=== PATIENT | male | born 1995 | race Caucasian/White ===

== ENCOUNTER 2017-11-16 19:21 | Emergency (ER) | payer OTHER ==
[~2017-11-16] VITALS: Ht 167.6 cm; Wt 76.7 kg
[2017-11-16 19:42] VITALS: BP 122/78
--- NOTE | 2017-11-16 20:45 | ULTRASOUND REPORT ---
EXAMINATION: US SCROTUM CLINICAL INFORMATION: Testicular swelling. Lump. Pain. COMPARISON: None TECHNIQUE: A sonogram of the scrotum was performed assessing ha-scale appearance and color Doppler flow. Spectral analysis and Doppler interrogation was performed. FINDINGS: RIGHT: Right testicle measures 4.9 x 2.3 x 3 cm, volume 24 mL. Parenchymal echotexture is normal. No focal testicular parenchymal lesions are visualized. Normal symmetric intratesticular flow is visualized. Right epididymal head is normal in size. There is a 3 mm cyst in the head of the right epididymis. No right hydrocele or varicocele is seen. LEFT: Left testicle measures 5 x 2.4 x 2.7 cm, volume 23 mL. Parenchymal echotexture is normal. No focal testicular parenchymal lesions are visualized. Normal symmetric intratesticular flow is visualized. Left epididymal head is normal in size. No left hydrocele or varicocele is seen. There is a palpable lump felt in the area of the groin. Targeted ultrasound of this area shows a lymph node with a normal ultrasound morphology. Lymph node measures 0.6 cm in short axis diameter. There is no hernia or abnormal mass or focal fluid collection. IMPRESSION: 1. Normal ultrasound of the right and left testicle, normal ultrasound of scrotum. 2. Small morphologically normal-appearing lymph node in the left groin in the area the palpable lump.
--- NOTE | 2017-11-16 21:01 | ED GI/GU/ABDOMINAL COMPLAINT ---
History of Present Illness General Chief Complaint: General Adult Stated Complaint: "I THINK I HAVE A HERNIA" Source: patient, old records Exam Limitations: no limitations Vital Signs & Intake/Output Vital Signs & Intake/Output Vital Signs Date Time Temp Pulse Resp B/P B/P Pulse O2 O2 Flow FiO2 Mean Ox Delivery Rate 11/16 1941 99.9 88 16 122/78 99 Room Air Allergies Coded Allergies: NO KNOWN ALLERGIES (09/14/14) Reconcile Medications Amoxicillin/Potassium Clav (Augmentin 875-125 Tablet) 875 MG-125 MG TABLET 1 TAB PO BID abscess Ibuprofen 600 MG TABLET 1 TAB PO Q6P PRN pain with food Triage Note: PT TO THE ER STATING THAT HE HAS PAIN IN HIS GROIN /10 AND THAT HE HAS A LUMP. PT STATES THAT THE LUMP FEELS LIKE A KNOT IN YOUR BACK AND IS PAINFUL TO THE TOUCH. PT STATES THAT HE THINKS THAT HE HAS HERNIA AND THAT HE HAS NO HISTORY OF IT. Triage Nurses Notes Reviewed? yes Onset: Last week Duration: day(s):, constant, continues in ED Timing: recent history Quality/Severity: moderate, sharpness, severe Location: Right inguinal Radiation: no radiation Activities at Onset: physical activity Prior Abdominal Problems: none Past Sexual History: Unobtainable at this time Modifying Factors: Worsens With: movement, palpation. Associated Symptoms: abdominal pain HPI: Several days prior to admission patient complains of increasing pain to the right inguinal area with painful lump described as sharp worse with palpation and movement. He denies fever chills nausea vomiting diarrhea chest pain cough shortness of breath headache dysuria rash bleeding. Past History Travel History Traveled to [place] past 21 day No Medical History Any Pertinent Medical History? none Tetanus Vaccine: Surgical History Surgical History: DENIES Psychosocial History What is your primary language Pashto Tobacco Use: Current Daily Use Daily Tobacco Use Amount/Type: => 5 Cigarettes daily Family History Hx Contributory? No Review of Systems Review of Systems Constitutional: Reports: no symptoms. EENTM: Reports: no symptoms. Respiratory: Reports: no symptoms. Cardiovascular: Reports: no symptoms. GI: Reports: see HPI. Genitourinary: Reports: see HPI, pain. Musculoskeletal: Reports: no symptoms. Skin: Reports: no symptoms. Neurological/Psychological: Reports: no symptoms. Hematologic/Endocrine: Reports: no symptoms. Immunologic/Allergic: Reports: no symptoms. All Other Systems: Reviewed and Negative Physical Exam Physical Exam General Appearance: well developed/nourished, alert, awake, anxious, mild distress Head: atraumatic, normal appearance Eyes: Bilateral: normal appearance, PERRL, EOMI, normal inspection. Ears, Nose, Throat, Mouth: hearing grossly normal, moist mucous membrane Neck: normal inspection, supple, full range of motion, normal alignment Respiratory: normal breath sounds, chest non-tender, no respiratory distress, quiet respiration, lungs clear Cardiovascular: regular rate/rhythm, normal peripheral pulses, norml femoral pulses equa Peripheral Pulses: 4+ carotid (R), 4+ carotid (L) Gastrointestinal: normal bowel sounds, soft, no organomegaly, mass, right inguinal lymph node tender 1 cm2 Male Genitals: normal genitalia Back: normal inspection, normal range of motion, no vertebral tenderness Extremities: normal range of motion, no ligament instability Neurologic/Psych: no motor/sensory deficits, awake, alert, oriented x 3, normal gait, 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 No Sepsis Present: No Sepsis Focused Exam Completed? No Progress Differential Diagnosis: hernia, testicular torsion Plan of Care: Current Medications Sig/Good Start time Last Medication Dose Stop Time Status Admin Amoxicillin/ 500 MG ONCE ONE 11/16 2114 UNVr Clavulanate Potassium 11/17 2115 (Augmentin) Diagnostic Imaging: Viewed by Me: Ultrasound. Discussed w/RAD: Ultrasound. Radiology Impression: 1. Normal ultrasound of the right and left testicle, normal ultrasound of scrotum. 2. Small morphologically normal-appearing lymph node in the left groin in the area the palpable lump. Initial ED EKG: none Departure Departure Time of Disposition: 2101 Disposition: HOME OR SELF CARE Condition: Stable Clinical Impression Primary Impression: Lymphadenopathy, inguinal Referrals: Monique SHAIKH,Rao Platt (PCP/Family) Valerio SHAIKH,Bernard Hong Call for surgical follow up Departure Forms: Customer Survey General Discharge Information RELEASE- WORK Prescriptions: Current Visit Scripts Amoxicillin/Potassium Clav (Augmentin 875-125 Tablet) 1 TAB PO BID #20 TAB Ibuprofen 1 TAB PO Q6P PRN pain #50 TAB with food
[2017-11-16] MEDS ORDERED: AUGMENTIN 875-1 EACH PO (21:05)
[2017-11-16] MEDS ORDERED: IBUPROFEN600 M1 PO (21:05)
== END 2017-11-16 21:33 ==
LOC: ERH 19:21
DX: R59.1 Generalized enlarged lymph nodes (principal); F17.210 Nicotine dependence, cigarettes, uncomplicated
CPT/HCPCS: J3490